=== PATIENT | male | born 1985 | race African-American/Black ===

== ENCOUNTER 2016-07-25 10:05 | Emergency (ER) | payer SELFPAY ==
[~2016-07-25] VITALS: Ht 177.8 cm; Wt 95.3 kg
[2016-07-25 10:32] VITALS: BP 137/67
--- NOTE | 2016-07-25 14:23 | NUR ---
LWBS 14:20
== END 2016-07-25 14:20 | disposition left against medical advice (07) ==
LOC: MED 10:05
DX: J02.9 Acute pharyngitis, unspecified (principal); Z53.21 Procedure and treatment not carried out due to patient leaving prior to being seen by health care provider